=== PATIENT | female | born 1995 | race Caucasian/White ===

== ENCOUNTER → 2019-10-02 11:30 | Outpatient (CLI) | payer SELFPAY ==
--- NOTE | 2019-10-02 | DI.RAD.S_ITS ---
PROCEDURE: XR CHEST 2V INDICATIONS: cough TECHNIQUE: 2 views of the chest were acquired. COMPARISON: None. FINDINGS: Surgical changes and devices: None. Lungs and pleura: Lungs are abnormal, with dense pneumonia left lower lobe, mid chest level.. No pleural effusions or pneumothorax. Mediastinum: Mediastinal contours are normal. Heart size is normal. Bones and chest wall: No suspicious bony abnormalities. Soft tissues appear unremarkable. IMPRESSION: Left lower lobe pneumonia, mid chest level. No pleural effusion is found. Dictated by: Lon Owen M.D. on 10/02/2019 at 12:44 Approved by: Lon Owen M.D. on 10/02/2019 at 12:45
== END ==
PROVIDERS: PCP Family Medicine; Referring Provider Internal Medicine; Visit Provider Internal Medicine
DX: J18.9 Pneumonia, unspecified organism (principal); R05 Cough
CPT/HCPCS: 71046

== ENCOUNTER → 2019-10-27 16:11 | Outpatient (CLI) | payer SELFPAY ==
[2019-10-27 20:17] LABS: Urine N gonorrhoeae NOT DETECTED
[2019-10-27 20:30] LABS: Urine Chlamydia NOT DETECTED
== END ==
PROVIDERS: PCP Family Medicine; Visit Provider Family Medicine
DX: N89.8 Other specified noninflammatory disorders of vagina (principal)
CPT/HCPCS: 87491; 87591

== ENCOUNTER → 2020-01-12 16:38 | Outpatient (CLI) | payer SELFPAY ==
--- NOTE | 2020-01-12 | DI.RAD.S_ITS ---
PROCEDURE: XR ANKLE RT MIN 3V INDICATIONS: Right Ankle Pain and Swelling After Fall TECHNIQUE: 3 views of the ankle were acquired. COMPARISON: 01/09/08 right ankle could not be retrieved for review. FINDINGS: Bones: No dislocations. Ankle mortise is normally aligned. No suspicious bony lesions. There is a diagonal fracture across the high margin of the lateral malleolus, slightly displaced laterally below the fracture margin, without additional trauma to the visualized ankle and foot. Soft tissues: No tibiotalar joint effusion. Achilles tendon appears normal. IMPRESSION: A high lateral malleolar fracture right ankle is associated with slight widening of the lateral ankle mortise joint, no additional trauma or displacement found. Dictated by: Lon Owen M.D. on 01/13/2020 at 9:46 Approved by: Lon Owen M.D. on 01/13/2020 at 9:49
== END ==
PROVIDERS: PCP Family Medicine; Referring Provider Physician Assistant; Visit Provider Physician Assistant
DX: M25.571 Pain in right ankle and joints of right foot (principal); S82.61XA Displaced fracture of lateral malleolus of right fibula, initial encounter for closed fracture; W19.XXXA Unspecified fall, initial encounter
CPT/HCPCS: 73610

== ENCOUNTER → 2020-09-20 13:38 | Outpatient (CLI) | payer OTHER, SELFPAY ==
--- NOTE | 2020-09-20 13:39 | DI.RAD.S_ITS ---
PROCEDURE: XR ANKLE RT MIN 3V INDICATIONS: f/u lateral malleolus fracture TECHNIQUE: 3 views of the ankle were acquired. COMPARISON: [facility], CR, ANKLE 3 VIEWS RIGHT, 01/09/2008, 16:02. [facility], CR, XR ANKLE RT MIN 3V, 01/12/2020, 17:25. FINDINGS: Bones: There is a healed spiral fracture with mild deformity in the distal fibular. Ankle mortise is normally aligned. No suspicious bony lesions. Soft tissues: No tibiotalar joint effusion. Achilles tendon appears normal. IMPRESSION: Old distal fibular fracture with mild deformity. Ankle mortise is congruent. Dictated by: Yves Quintero M.D. on 09/20/2020 at 17:39 Approved by: Yves Quintero M.D. on 09/20/2020 at 17:41
== END ==
PROVIDERS: PCP Family Medicine; Referring Provider Family Medicine; Visit Provider Family Medicine
DX: S82.441D Displaced spiral fracture of shaft of right fibula, subsequent encounter for closed fracture with routine healing (principal); X58.XXXD Exposure to other specified factors, subsequent encounter
CPT/HCPCS: 73610

== ENCOUNTER → 2020-12-15 10:11 | Outpatient (CLI) | payer OTHER, SELFPAY ==
[2020-12-15] MEDS: COVID-19 VACC #1, MRNA(MOD) 100 MCG/0.5 ML VIAL IM (10:21)
== END ==
PROVIDERS: PCP Family Medicine; Visit Provider Internal Medicine
DX: Z23 Encounter for immunization (principal)
CPT/HCPCS: 0011A; 91301

== ENCOUNTER → 2021-01-20 10:09 | Outpatient (CLI) | payer OTHER, SELFPAY ==
[2021-01-20] MEDS: COVID-19 VACC #2, MRNA(MOD) 100 MCG/0.5 ML VIAL IM (10:20)
== END ==
PROVIDERS: PCP Family Medicine; Visit Provider Internal Medicine
DX: Z23 Encounter for immunization (principal)
CPT/HCPCS: 0012A; 91301

== ENCOUNTER → 2021-06-18 13:29 | Outpatient (CLI) | payer OTHER, SELFPAY | PROVIDERS: PCP Family Medicine; Referring Provider Physician Assistant; Visit Provider Physician Assistant | DX: N39.0 Urinary tract infection, site not specified (principal) | CPT/HCPCS: 87086; 87147 ==

== ENCOUNTER → 2022-03-26 14:41 | Outpatient (CLI) | payer OTHER, SELFPAY ==
[2022-03-26 16:11] LABS: Hematocrit 39.5 % (36-46); Hemoglobin 13.6 g/dL (12.0-16.0); Mean Corpuscular HGB Conc 34.4 % (30-36); Mean Corpuscular Hemoglobin 30.9 PG (26-34); Mean Corpuscular Volume 89.9 fL (80-100); Platelet Count 186 X10^3/uL (150-400); Red Cell Distribution Width 13.1 % (11.6-14.8); White Blood Cell Count 7.9 X10^3/uL (4.5-11.0)
[2022-03-26 17:18] LABS: Alanine Aminotransferase 17 IU/L (<35); Albumin 4.4 g/dL (3.5-5.0); Albumin Globulin Ratio 1.8 (1.0-2.8); Alkaline Phosphatase 67 U/L (38-126); Aspartate Aminotransferase 24 IU/L (14-36); Bilirubin Total 0.3 mg/dL (0.2-1.3); Blood Urea Nitrogen 12 mg/dL (7-17); Carbon Dioxide 27 mmol/L (22-32); Chloride 104 mmol/L (98-107); Estimated Glomerular Filt Rate > 60 mL/min (>60); Free T3, Triiodothyronine Free 3.56 pg/mL (2.77-5.27); Free T4, Direct Thyroxine 1.07 ng/dL (0.78-2.19); Globulin 2.4 g/dL (1.7-4.1); Glucose 78 mg/dL (70-100); HEMOLYSIS < 15 (0-50); Potassium 4.1 mmol/L (3.4-5.1); Sodium 138 mmol/L (137-145); Total Protein 6.8 g/dL (6.3-8.2)
[2022-03-26 17:32] LABS: Thyroid Stimulating Hormone 1.63 uIU/mL (0.47-4.68)
[2022-03-26 17:47] LABS: Urine N gonorrhoeae NOT DETECTED
[2022-03-26 17:50] LABS: Hepatitis B Surface Antigen NEGATIVE s/c (NEGATIVE)
[2022-03-26 17:59] LABS: Urine Chlamydia NOT DETECTED
[2022-03-26 18:18] LABS: HIV 1 & 2 Ab/Ag 4th Gen Combo NEGATIVE (NEGATIVE); Hep C Virus Ab w/Reflex Quant NEGATIVE s/c (NEGATIVE)
[2022-03-27 06:36] LABS: HSV 2 IGG AB < 0.91 index (0.00-0.90); HSV1IGG < 0.91 index (0.00-0.90)
[2022-03-27 08:12] LABS: RPR Screen Non Reactive (Non Reactive)
[2022-03-27 19:46] LABS: HSV I/II IgM <0.91 Ratio (0.00-0.90)
== END ==
PROVIDERS: PCP Nurse Practitioner; Referring Provider Nurse Practitioner; Visit Provider Nurse Practitioner
DX: Z00.00 Encounter for general adult medical examination without abnormal findings (principal); Z11.3 Encounter for screening for infections with a predominantly sexual mode of transmission; F41.9 Anxiety disorder, unspecified
CPT/HCPCS: 36415; 80053; 84439; 84443; 84481; 85027; 86592; 86694; 86695; 86696; 86803; 87340; 87389; 87491; 87591

== ENCOUNTER → 2022-10-18 17:25 | Outpatient (CLI) | payer OTHER, SELFPAY ==
[2022-10-18 17:43] LABS: Add Manual Diff / Slide Review NO; Basophils Absolute Auto 100 /uL (0-100); Eosinophils Absolute Auto 100 /uL (0-450); Eosinophils Percent Auto 1.7 % (2-4); Hematocrit 40.4 % (36-46); Hemoglobin 13.7 g/dL (12.0-16.0); Lymphocytes Absolute Auto 1900 /uL (1100-4500); Lymphocytes Percent Auto 24.2 % (25-40); Mean Corpuscular HGB Conc 33.9 % (30-36); Mean Corpuscular Hemoglobin 30.1 PG (26-34); Mean Corpuscular Volume 88.7 fL (80-100); Monocytes Absolute Auto 500 /uL (0-900); Monocytes Percent Auto 6.6 % (3-14); Neutrophils Absolute Auto 5300 /uL (1500-7000); Neutrophils Percent Auto 66.5 % (50-75); Platelet Count 197 X10^3/uL (150-400); Red Blood Cell Count 4.56 X10^6/uL (4.0-5.2); Red Cell Distribution Width 13.2 % (11.6-14.8); White Blood Cell Count 7.9 X10^3/uL (4.5-11.0)
[2022-10-18 18:16] LABS: Alanine Aminotransferase 18 IU/L (<35); Albumin 4.4 g/dL (3.5-5.0); Albumin Globulin Ratio 1.5 (1.0-2.8); Alkaline Phosphatase 70 U/L (38-126); Amylase 80 U/L (30-110); Aspartate Aminotransferase 23 IU/L (14-36); BUN Creatinine Ratio 14.3 (6-22); Bilirubin Total 0.6 mg/dL (0.2-1.3); Blood Urea Nitrogen 8 mg/dL (7-17); Carbon Dioxide 27 mmol/L (22-32); Chloride 102 mmol/L (98-107); Estimated Glomerular Filt Rate > 60 mL/min (>60); Glucose 86 mg/dL (70-100); HEMOLYSIS < 15 (0-50); Lipase 53 U/L (23-300); Potassium 3.8 mmol/L (3.4-5.1); Sodium 137 mmol/L (137-145); Total Protein 7.4 g/dL (6.3-8.2)
[2022-10-18 18:42] LABS: Free T3, Triiodothyronine Free 4.24 pg/mL (2.77-5.27); Free T4, Direct Thyroxine 1.29 ng/dL (0.78-2.19)
[2022-10-18 18:55] LABS: Thyroid Stimulating Hormone 1.85 uIU/mL (0.47-4.68)
== END ==
PROVIDERS: PCP Nurse Practitioner; Referring Provider Nurse Practitioner; Visit Provider Nurse Practitioner
DX: R10.9 Unspecified abdominal pain (principal); R11.2 Nausea with vomiting, unspecified
CPT/HCPCS: 36415; 80053; 82150; 83690; 84439; 84443; 84481; 85025

== ENCOUNTER 2022-12-04 12:45 | Day surgery (SDC) | payer OTHER, SELFPAY ==
--- NOTE | 2022-12-04 | PATH_ITS ---
[facility] Accession Number: [id number] No. of containers..03 Tissue . 01 Material submitted: . PART A: duodenum - DUODENUM BIOPSY PART B: stomach - STOMACH BIOPSY PART C: esophagus, E-G Junction - GE JUNCTION BIOPSY . 01 Diagnosis: A. Duodenum, Biopsy: Duodenal mucosa with no diagnostic abnormality. Negative for active inflammation, features of sprue, dysplasia, or malignancy. . B. Stomach, Biopsy: Antral mucosa with mild chronic gastritis. No evidence of Helicobacter organisms on H/E stain. Negative for intestinal metaplasia. Negative for dysplasia or malignancy. . C. Gastroesophageal Junction, Biopsy: Squamous epithelium with patchy reactive epithelial changes, yeast and invasive pseudohyphae, consistent with Rosalina esophagitis. Negative for dysplasia and malignancy. [facility] 12/06/2022 1719 Local . 01 Electronically signed: . Morena Abreu MD, Pathologist NPI- [id number] . 01 Gross description: . Part A: DUODENUM BIOPSY: Received in formalin is 1 fragment(s) of [place]ol[place], soft tissue measuring 0.2 x 0.2 x 0.2 cm submitted entirely in 1 cassette(s) Part B: STOMACH BIOPSY: Received in formalin are 2 fragment(s) of rebolledo, soft tissue measuring 0.1 x 0.1 x 0.1 cm to 0.5 x 0.2 x 0.2 cm submitted entirely in 1 cassette(s) Part C: GE JUNCTION BIOPSY: Received in formalin are 2 fragment(s) of rebolledo, soft tissue measuring 0.3 x 0.2 x 0.2 cm to 0.5 x 0.2 x 0.2 cm submitted entirely in 1 cassette(s) /JIMENA 12/05/2022 1918 Local . 01 Pathologist provided ICD-10: B37.81, R10.13 . 01 CPT . 251248, [id number], [id number] Specimen Comment: A courtesy copy of this report has been sent to [phone] Performed at: 01 [facility] [address] [place] [address], [place], [place] [id number] MD Mario Mcghee MD Phone: [phone]
[2022-12-04 13:06] VITALS: BP 108/72; PULSE 62; RESP 16; TEMP 36.8; O2SAT 98; BMI 21.0
[2022-12-04] MEDS: LACTATED RINGERS 1,000 ML 200 ML IV (13:30)
--- NOTE | 2022-12-04 14:01 | PM.HP.1 ---
History of Present Illness History of Present Illness Date Patient Seen: 12/04/22 Time Patient Seen: 14:02 Chief complaint: SDC Narrative: 26-year-old woman with chronic epigastric abdominal pain here for diagnostic esophagoduodenoscopy. Since last seen she started on omeprazole and had minimal improvement of abdominal pain. Please refer to the H and P from October 2022 for further detail PFSH Medical History Anxiety (~2018) Chlamydia (~2019) Fractures (~2019) Wheezy Family History Grandfather Alzheimer's disease Social History household members: significant other Smoking Status: Never smoker alcohol intake: current substance use type: does not use Meds Home Medications and Allergies Home Medications Medication Instructions Recorded Confirmed Type hydroxyzine HCl 25 mg tablet 25 mg PO TID PRN anxiety #30 tabs 10/18/22 12/04/22 Rx omeprazole 20 mg capsule,delayed 20 mg PO BID #180 caps 10/18/22 12/04/22 Rx release Allergies Allergy/AdvReac Type Severity Reaction Status Date / Time No Known Drug Allergies Allergy Verified 12/04/22 13:00 Exam Vital Signs (past 8 hours): - 12/04/22 13:06 Temperature 98.3 F Pulse Rate 62 Respiratory Rate 16 Blood Pressure 108/72 Pulse Oximetry 98 Oxygen Delivery Method Room Air Oxygen Delivery Method Room Air Narrative Exam Narrative: General adult woman alert oriented no acute distress Assessment & Plan Assessment and plan (1) Abdominal pain: Qualifiers: Abdominal location: epigastric Qualified Code(s): R10.13 - Epigastric pain Status: Acute Assessment & Plan narrative: 26-year-old woman with chronic abdominal pain here for diagnostic esophagoduodenoscopy. Technical details were discussed. Risks, benefits, alternatives explained. Risks including but not limited to myocardial infarction, aspiration, bleeding, pain, missed lesion, incomplete examination, need for further radiographic studies, intestinal perforation, and need for major abdominal surgery were discussed. All questions were answered to their satisfaction, and they are in agreement with this plan.
[2022-12-04 14:29] VITALS: BP 89/52; PULSE 68; RESP 12; TEMP 37.2; O2SAT 97
--- NOTE | 2022-12-04 14:32 | PM.OP.EGD ---
Operative Date/Time/Diagnoses Date of procedure: 12/04/22 Time of procedure: 14:32 Pre-op diagnosis: Epigastric pain Post-op diagnosis: other (Gastritis) Procedure & Clinicians Study performed: Esophagoduodenoscopy Same procedure as scheduled: Yes Indications: Epigastric pain Surgeon: Red Enrique Procedure Notes Procedure in detail: The history and physical was performed/updated and the patient is ASA class is 2. The procedure was discussed in detail with the patient. Potential risks complications including infection, bleeding, missed diagnosis, perforation, need for surgery, and were explained. Their questions were answered and informed consent was obtained. Patient placed in left lateral decubitus position. Time out was performed. Procedural sedation was administered by Anesthesia. A bite block was placed. the scope was inserted into the mouth and advanced through the esophagus and into the stomach. The stomach was notable for diffuse mild gastritis. Biopsies of the stomach were performed. Pylorus was intubated and the duodenum was inspected and it was also noted to be mildly inflamed biopsies were taken. Retroflexion of the scope within the stomach demonstrates a small hiatal hernia. The esophagus was normal in its appearance as well as the GE junction. Biopsies of the GE junction at 35 cm were taken with forceps. Stomach was desufflated and scope removed. The patient tolerated the procedure well and will be discharged when they meet criteria. Findings: gastritis Specimen(s): other (Gastric, duodenum, GE junction) Impression: Gastritis Post-procedure Plan for aftercare: Await pathology. Trial of omeprazole 20 mg twice daily continuously for 2 weeks Disposition: same day surgery
[2022-12-04 14:34] VITALS: BP 91/52; PULSE 71; RESP 19; TEMP 37.2; O2SAT 99
[2022-12-04 14:38] VITALS: BP 103/65; PULSE 61; RESP 12; TEMP 37.2; O2SAT 100
[2022-12-04 14:45] VITALS: BP 92/56; PULSE 64; RESP 11; TEMP 37.2; O2SAT 100
[2022-12-04 14:53] VITALS: BP 102/59; PULSE 67; RESP 14; TEMP 36.6; O2SAT 99
== END 2022-12-04 15:01 | disposition home or self-care (01) ==
PROVIDERS: PCP Nurse Practitioner; Referring Provider Surgery; Visit Provider Surgery
PROC: 0DJ08ZZ Inspection of Upper Intestinal Tract, Via Natural or Artificial Opening Endoscopic (ICD-10-PCS; CPT 43235; principal; 2022-12-04 13:45)
DX: K29.50 Unspecified chronic gastritis without bleeding (principal); B37.81 Candidal esophagitis; K44.9 Diaphragmatic hernia without obstruction or gangrene
CPT/HCPCS: 43239; J2250; J2704; J3010

== ENCOUNTER → 2022-12-18 08:58 | Outpatient (CLI) | payer OTHER, SELFPAY | PROVIDERS: PCP Nurse Practitioner; Visit Provider Family Medicine | DX: R31.0 Gross hematuria (principal) | CPT/HCPCS: 87086 ==

== ENCOUNTER → 2024-01-21 12:08 | Outpatient (ROUT) | payer SELFPAY ==
[2024-01-21 12:26] LABS: Urine Drug Scr, Empl Non-NIDA See Separate Report
== END ==
PROVIDERS: PCP Nurse Practitioner
DX: Z02.1 Encounter for pre-employment examination (principal)
CPT/HCPCS: 81099

== ENCOUNTER → 2024-05-29 | Outpatient (CLI) | payer OTHER, SELFPAY | PROVIDERS: PCP Nurse Practitioner; Referring Provider Internal Medicine; Visit Provider Internal Medicine | DX: Z23 Encounter for immunization (principal) | CPT/HCPCS: 90471; 90656 ==